=== PATIENT | male | born 1990 | race American Indian/Alaskan Native ===

== ENCOUNTER 2019-05-14 08:00 | Emergency (ER) | payer SELFPAY ==
[2019-05-14 09:03] LABS: Bacteria,Urine 1+ /HPF (Negative); Bilirubin,Urine NEG (Negative); Blood,Urine NEG (Negative); Color,Urine Yellow (Yellow); Mucus,Urine 2+ /HPF; Protein,Urine <15 mg/dL mg/dL (Negative)
--- NOTE | 2019-05-14 09:04 | Emergency Department Report ---
HPI - General Chief Complaint: Psych Time Seen by Provider: 05/14/19 08:27 - HPI HPI: Room 19 The patient is a 29-year-old male presenting with a chief complaint hyperventilation. Patient states he was treated for safety after he found out his friend at home was involved with some "unsavory people." The patient called police who found the patient hyperventilating. The police transport the patient to a gas station where he was reportedly waiting for a ride. The police gave the patient option to come to the hospital for evaluation. Patient denies suicidal or homicidal ideation. Patient denies visual hallucinations but states he's had auditory hallucinations hearing "whistling" for one day. When asked how he is feeling now the patient replies he feels his heart beating. Location: [See above] Duration: [See above] Quality: [See above] Severity: [See above] Timing: [See above] Context: [See above] Modifying factors: [See above] Associated signs and symptoms: [see above] ED Past Medical Hx - Past Medical History Previous Medical History?: Yes Hx Hypertension: Yes - Surgical History Past Surgical History?: No - Family History Family history: no significant - Social History Smoking Status: Current Every Day Smoker Substance Use Type: Alcohol (moderate), Cocaine, Marijuana - Medications Home Medications: Home Medications Medication Instructions Recorded Confirmed Last Taken Type No Known Home Medications [No 02/01/15 02/01/15 Unknown History Reported Home Medications] ED Review of Systems ROS: Stated complaint: ANXIETY/PARANOID Other details as noted in HPI Constitutional: no symptoms reported Eyes: denies: eye pain ENT: denies: throat pain Respiratory: no symptoms reported Cardiovascular: palpitations Endocrine: no symptoms reported Gastrointestinal: denies: abdominal pain Genitourinary: denies: dysuria Musculoskeletal: denies: back pain Neurological: denies: headache Psychiatric: anxiety, auditory hallucinations. denies: visual hallucinations, homicidal thoughts, suicidal thoughts Physical Exam - Physical Exam Vital Signs: Vital Signs 05/14/19 08:08 Temperature 98.4 F Pulse Rate 90 Respiratory 16 Rate Blood Pressure 156/94 O2 Sat by Pulse 100 Oximetry Physical Exam: GENERAL: The patient is well-developed well-nourished male lying on stretcher in acute distress. [] HEENT: Normocephalic. Atraumatic. Extraocular motions are intact. Patient has moist mucous membranes. NECK: Supple. Trachea midline CHEST/LUNGS: Clear to auscultation. There is no respiratory distress noted. HEART/CARDIOVASCULAR: Regular. There is no tachycardia. There is no gallop rub or murmur. ABDOMEN: Abdomen is soft, nontender. Patient has normal bowel sounds. There is no abdominal distention. SKIN: There is no rash. There is no edema. There is no diaphoresis. NEURO: The patient is awake, alert, and oriented. The patient is cooperative. The patient has normal speech MUSCULOSKELETAL: There is no evidence of acute injury. ED Course Vital Signs 05/14/19 08:08 Temperature 98.4 F Pulse Rate 90 Respiratory 16 Rate Blood Pressure 156/94 O2 Sat by Pulse 100 Oximetry - Reevaluation(s) Reevaluation #1: 05/14/19 10:32 Patient becoming more paranoid. Patient thinks a separate patient in an adjoining room is one of the "unsavory characters." Or somehow involved. Patient was moved to a different room where he states he still does not feel safe. ED Medical Decision Making - Lab Data Result diagrams: 05/14/19 08:53 05/14/19 08:53 Laboratory Tests 05/14/19 05/14/19 05/14/19 08:33 08:33 08:53 WBC 5.6 RBC 4.71 Hgb 15.0 Hct 44.6 MCV 95 H MCH 32 MCHC 34 RDW 13.4 Plt Count 255 Lymph % (Auto) 23.3 [place] % (Auto) 8.4 H Eos % (Auto) 0.5 Baso % (Auto) 0.8 Lymph # 1.3 [place] # 0.5 Eos # 0.0 Baso # 0.0 Seg Neutrophils % 67.0 Seg Neutrophils # 3.8 Sodium Potassium Chloride Carbon Dioxide Anion Gap BUN Creatinine Estimated GFR BUN/Creatinine Ratio Glucose Calcium Urine Color Yellow Urine Turbidity Clear Urine pH 5.0 Ur Specific [place] 1.029 Urine Protein <15 mg/dl Urine Glucose (UA) Neg Urine Ketones Tr Urine Blood Neg Urine Nitrite Neg Urine Bilirubin Neg Urine Urobilinogen 2.0 Ur Leukocyte Esterase Tr Urine WBC (Auto) 3.0 Urine RBC (Auto) 1.0 U Epithel Cells (Auto) < 1.0 Urine Bacteria (Auto) 1+ Urine Mucus 2+ Salicylates Urine Opiates Screen Presumptive negative Urine Methadone Screen Presumptive negative Acetaminophen Ur Barbiturates Screen Presumptive negative Ur Phencyclidine Scrn Presumptive negative Ur Amphetamines Screen Presumptive positive U Benzodiazepines Scrn Presumptive negative Urine Cocaine Screen Presumptive negative U Marijuana (THC) Screen Presumptive negative Drugs of Abuse Note Disclamer Plasma/Serum Alcohol 05/14/19 05/14/19 05/14/19 08:53 08:53 08:53 WBC RBC Hgb Hct MCV MCH MCHC RDW Plt Count Lymph % (Auto) [place] % (Auto) Eos % (Auto) Baso % (Auto) Lymph # [place] # Eos # Baso # Seg Neutrophils % Seg Neutrophils # Sodium 136 L Potassium 4.0 Chloride 102.0 Carbon Dioxide 19 L Anion Gap 19 BUN 16 Creatinine 0.8 Estimated GFR > 60 BUN/Creatinine Ratio 20 Glucose 106 H Calcium 9.2 Urine Color Urine Turbidity Urine pH Ur Specific [place] Urine Protein Urine Glucose (UA) Urine Ketones Urine Blood Urine Nitrite Urine Bilirubin Urine Urobilinogen Ur Leukocyte Esterase Urine WBC (Auto) Urine RBC (Auto) U Epithel Cells (Auto) Urine Bacteria (Auto) Urine Mucus Salicylates < 0.3 L Urine Opiates Screen Urine Methadone Screen Acetaminophen < 5.0 L Ur Barbiturates Screen Ur Phencyclidine Scrn Ur Amphetamines Screen U Benzodiazepines Scrn Urine Cocaine Screen U Marijuana (THC) Screen Drugs of Abuse Note Plasma/Serum Alcohol 05/14/19 08:53 WBC RBC Hgb Hct MCV MCH MCHC RDW Plt Count Lymph % (Auto) [place] % (Auto) Eos % (Auto) Baso % (Auto) Lymph # [place] # Eos # Baso # Seg Neutrophils % Seg Neutrophils # Sodium Potassium Chloride Carbon Dioxide Anion Gap BUN Creatinine Estimated GFR BUN/Creatinine Ratio Glucose Calcium Urine Color Urine Turbidity Urine pH Ur Specific [place] Urine Protein Urine Glucose (UA) Urine Ketones Urine Blood Urine Nitrite Urine Bilirubin Urine Urobilinogen Ur Leukocyte Esterase Urine WBC (Auto) Urine RBC (Auto) U Epithel Cells (Auto) Urine Bacteria (Auto) Urine Mucus Salicylates Urine Opiates Screen Urine Methadone Screen Acetaminophen Ur Barbiturates Screen Ur Phencyclidine Scrn Ur Amphetamines Screen U Benzodiazepines Scrn Urine Cocaine Screen U Marijuana (THC) Screen Drugs of Abuse Note Plasma/Serum Alcohol < 0.01 - EKG Data -: EKG Interpreted by Nd EKG shows normal: sinus rhythm Rate: normal - EKG Data When compared to previous EKG there are: previous EKG unavailable Interpretation: other (early repolarization) - Differential Diagnosis anxiety, substance abuse, paranoia, Critical care attestation.: If time is entered above; I have spent that time in minutes in the direct care of this critically ill patient, excluding procedure time. ED Disposition Clinical Impression: Paranoia, Amphetamine abuse Disposition: [id number]/TX-[id number] PSY HOSP/PSY UNIT Is pt being admited?: No Does the pt Need Aspirin: No Condition: Fair Referrals: PRIMARY CARE, [Primary Care Provider] - 3-5 Days Time of Disposition: 10:33 (awaiting acceptance)
[2019-05-14 09:07] LABS: Benzodiazepines Screen,Urine PRESUMPTIVE NEGATIVE; Cannabinoid Screen,Urine PRESUMPTIVE NEGATIVE; Cocaine Screen,Urine PRESUMPTIVE NEGATIVE; Methadone Screen,Urine PRESUMPTIVE NEGATIVE; Opiate Screen,Urine PRESUMPTIVE NEGATIVE
[2019-05-14 09:14] LABS: Basophils % (Auto) 0.8 % (0.0-1.8); Eosinophils % (Auto) 0.5 % (0.0-4.3); Hematocrit 44.6 % (35.5-45.6); Lymphocytes # (Auto) 1.3 K/mm3 (1.2-5.4); Lymphocytes % (Auto) 23.3 % (13.4-35.0); Mean Corpuscular HGB Conc 34 % (32-34); Mean Corpuscular Volume 95 fl (84-94); Monocytes # (Auto) 0.5 K/mm3 (0.0-0.8); Monocytes % (Auto) 8.4 % (0.0-7.3); Platelet Count 255 K/mm3 (140-440); Red Blood Count 4.71 M/mm3 (3.65-5.03); Red Cell Distribution Width 13.4 % (13.2-15.2)
[2019-05-14 09:23] LABS: Amphetamine Screen,Urine PRESUMPTIVE POSITIVE
[2019-05-14] MEDS ORDERED: LORazepam 1 MG TAB PO ONE (09:31)
[2019-05-14 09:37] LABS: BUN/Creatinine Ratio 20; Blood Urea Nitrogen 16 mg/dL (9-20); Calcium 9.2 mg/dL (8.4-10.2); Hemolysis Index 49
[2019-05-14] MEDS ORDERED: HALOPERIDOL LACTATE 5 MG/1 ML INJ IM PRN (10:33)
[2019-05-14] MEDS ORDERED: LORazepam 2 MG/ML VIAL IM PRN (10:33)
[2019-05-14] MEDS ORDERED: diphenhydrAMINE 50 MG/ML VIAL IM PRN (10:33)
--- NOTE | 2019-05-15 13:40 | Consultation ---
History of Present Illness - Reason for Consult Consult date: 05/15/19 Reason for consult: Mental Health Evaluation Requesting physician: TONE AQUINO - Chief Complaint Chief complaint: "They are after me" - History of Present Psychiatric Illness 29 y.o. AA male who presented to the ER for a mental health eval. Today the patient was calm during the assessment. The patient's story on how he ended up t o the ER was not logical. He appeared to be paranoid. He stated that someone is after him. He stated, "I think the staff is involved as well." He would not answer most questions about his mental health. He did state that he has a hx of substance abuse. He denies SI/HI's and AVH's. He denies alcohol consumption (etoh). Medications and Allergies Allergies Allergy/AdvReac Type Severity Reaction Status Date / Time No Known Allergies Allergy Unverified 12/11/14 09:54 Home Medications Medication Instructions Recorded Confirmed Last Taken Type No Known Home Medications [No 02/01/15 05/14/19 Unknown History Reported Home Medications] Active Meds: Active Medications Diphenhydramine HCl (Benadryl) 50 mg IM Q6H PRN PRN Reason: Agitation Haloperidol Lactate (Haldol) 10 mg IM Q8H PRN PRN Reason: Agitation Last Admin: 05/14/19 10:46 Dose: 10 mg Documented by: Lorazepam (Ativan) 2 mg IM Q8H PRN PRN Reason: Agitation Past psychiatric history - Past Medical History Past Medical History: No medical history Past Surgical History: No surgical history - past Psychiatric treatment and history psychiatric treatment history: Hx of substance abuse. Denies a fam psy hx. - Social History Social history: other (Homeless) Mental Status Exam - Vital signs Last Vital Signs Temp 97.7 F 05/15/19 01:28 Pulse 79 05/15/19 01:28 Resp 18 05/15/19 01:28 BP 114/66 05/15/19 01:28 Pulse Ox 98 05/15/19 01:28 - Exam Narrative exam: MSE: Appearance: calm Behavior: regular eye contact Speech: regular rate and tone Mood: "okay" Affect: congruent to mood Thought Process: circumstantial Thought Content: denies SI/HI's and AVH's, delusional, paranoia Motor Activity: lying in bed Cognition: A/O x 3 Insight: poor Judgment: poor Results Result Diagrams: 05/14/19 08:53 05/14/19 08:53 All other labs normal. Assessment and Plan Assessment and plan: Impression: Unspecified Psychosis. Substance Use DO (amphetamines). Today the patient was calm during the assessment. DDx: Substance Induced Psychosis Recommendation/Plan: Continue 1013. Start Zyprexa 5 mg PO HS for psychosis/mood. Discussed possible metabolic side effects from Zyprexa with the patient, he verbalized understanding. Dispo: The patient was referred to inpatient psy services. Will staff with Dr Ronald Johnston.
[2019-05-15 20:00] VITALS: BP 132/76
== END 2019-05-15 21:23 ==
LOC: ED 08:00 → EEVIPCON 08:00 → ED 05-15 21:23
DX: F22 Delusional disorders (principal); F15.10 Other stimulant abuse, uncomplicated; I10 Essential (primary) hypertension; F17.200 Nicotine dependence, unspecified, uncomplicated; F12.10 Cannabis abuse, uncomplicated; F14.10 Cocaine abuse, uncomplicated
CPT/HCPCS: 36415; 80048; 80307; 81001; 85025; 93005; 93010; 96372; 99285; J1630; 80320; G0480